=== PATIENT | male | born 1990 | race Caucasian/White ===

== ENCOUNTER 2024-09-05 00:10 | Emergency (ER) | payer MEDICAID ==
[~2024-09-05] VITALS: Ht 175.3 cm; Wt 68.0 kg
[2024-09-05 00:12] VITALS: BP 143/98; PULSE 88; RESP 18; TEMP 36.4; O2SAT 99
[2024-09-05] MEDS: KETOROLAC 15MG/ML VIAL IM ONE (00:53)
[2024-09-05] MEDS: LIDOCAINE 5% PATCH TOP SCH (00:53)
== END 2024-09-05 01:58 | disposition left against medical advice (07) ==
LOC: ER 00:10
DX: S00.93XA Contusion of unspecified part of head, initial encounter (principal); Z53.21 Procedure and treatment not carried out due to patient leaving prior to being seen by health care provider; V49.9XXA Car occupant (driver) (passenger) injured in unspecified traffic accident, initial encounter; Y93.89 Activity, other specified; Y92.89 Other specified places as the place of occurrence of the external cause; Y99.8 Other external cause status